=== PATIENT | male | born 1980 | race Caucasian/White ===

== ENCOUNTER 2021-09-08 11:01 | Emergency (ER) | payer OTHER, SELFPAY ==
[2021-09-08 11:17] VITALS: BP 122/81; PULSE 73; RESP 18; TEMP 36.6; O2SAT 97
--- NOTE | 2021-09-08 12:09 | ED.GENADULT ---
HPI - General Adult General Chief complaint: Upper Respiratory Infection Stated complaint: fever,chills,sorethroat Source: patient Mode of arrival: ambulatory Limitations: no limitations History of Present Illness HPI narrative: Patient is a 41-year-old male who presents to the urgent care via POV for evaluation of Covid-like symptoms that have been present for approximately 2 weeks. Additionally, he reports a dry cough that has been present for 2 weeks and fever, chills, and myalgias began yesterday prompting today's visit. Ibuprofen and cough and flu medications provide some relief. Nothing worsens symptoms. Denies known exposure to sick contacts. Patient is fully vaccinated against Covid and influenza. He has not received Covid booster. Of note, patient was Covid positive in September 2020. Related Data Home Medications Medication Instructions Recorded Confirmed bupropion HCl [Wellbutrin] 100 mg PO BID 09/08/21 09/08/21 omeprazole [Prilosec] 20 mg PO DAILY 09/08/21 09/08/21 Allergies Allergy/AdvReac Type Severity Reaction Status Date / Time No Known Allergies Allergy Verified 09/08/21 11:30 Review of Systems Review of Systems: Denies sweats, change in appetite, poor p.o. intake, malaise, headaches, dizziness, LOC, ear pain, nasal drainage, sinus problems, sore throat, breath, wheezing, cyanosis, abdominal pain, nausea, vomiting, diarrhea, chest pain, and heart palpitations PMFSH Past Medical History Medical History (Updated 09/08/21 @ 12:12 by Radha Gonzalez, DEBRANDER, ) Depression GERD (gastroesophageal reflux disease) Comments I have reviewed and agree with the patient's past medical, surgical, social, and family hx as documented by the RN. There is no relevant family history pertinent to the presenting complaint. Exam Narrative: GENERAL: Well-appearing, well-nourished, and in no acute distress. HEAD: Normocephalic, atraumatic. No sinus tenderness or facial swelling appreciated. EYES: PERRLA and EOMI. No evidence of erythema, swelling, or drainage. ENT: Bilateral external ears and ear canals normal. Bilateral TMs are normal.No TM perforation. Nares clear, no rhinorrhea or epistaxis. Bilateral turbinates without erythema/ swelling. Mucous membranes moist and pink. Uvula is midline without erythema and swelling. No evidence of petechial rash, cobblestoning, lesions, ulcers, erythema, swelling, exudates, peritonsillar abscess, tenting, or drooling. Breath odor and voice normal. NECK: Supple. No Lymphadenopathy or nuchal rigidity appreciated. CHEST: Bilateral lung jones are clear to auscultation. No respiratory distress. No evidence of pleuritic cp upon examination. Mild dry cough appreciated on examination. HEART: Regular rate and rhythm. No murmur, gallop, or rub heard. EXTREMITIES: Normal range of motion. No edema. SKIN: Warm, dry, no rash. NEURO: No focal deficits. Alert and oriented x3. Course Course Level of Care: Express Care Visit Vital Signs Vital signs: Vital Signs Temperature 97.9 F 09/08/21 11:17 Pulse Rate 73 09/08/21 11:17 Respiratory Rate 18 09/08/21 11:17 Blood Pressure 122/81 09/08/21 11:17 Pulse Oximetry 97 09/08/21 11:17 Temperature 97.9 F 09/08/21 11:17 Pulse Rate 73 09/08/21 11:17 Respiratory Rate 18 09/08/21 11:17 Blood Pressure 122/81 09/08/21 11:17 Pulse Oximetry 97 09/08/21 11:17 Reviewed Medical Decision Making Differential Diagnosis Differential Diagnosis: Allergic rhinitis, ABRS, acute viral sinusitis, strep pharyngitis, nasopharyngitis, bronchitis, pneumonia, AOM, otitis externa, viral URI, influenza, covid-19 Medical Records Medical records reviewed: Yes I reviewed the external patient's medical records. Vital Signs Vital Signs: Vital Signs Temperature 97.9 F 09/08/21 11:17 Pulse Rate 73 09/08/21 11:17 Respiratory Rate 18 09/08/21 11:17 Blood Pressure 122/81 09/08/21 11:17 Pulse Oximetry 97 09/08/
== END 2021-09-08 12:29 | disposition home or self-care (01) ==
PROVIDERS: Emergency Provider Nurse Practitioner Family
DX: U07.1 COVID-19 (principal); K21.9 Gastro-esophageal reflux disease without esophagitis; F32.9 Major depressive disorder, single episode, unspecified
CPT/HCPCS: 87426; 99203; C9803; G0463